=== PATIENT | female | born 1985 | race Caucasian/White ===

== ENCOUNTER 2020-05-25 12:16 | Emergency (ER) | payer OTHER ==
[~2020-05-25] VITALS: Ht 167.6 cm; Wt 76.3 kg
[2020-05-25] MEDS ORDERED: IBUPROFEN600 MG PO (14:22)
[2020-05-25 14:30] VITALS: BP 112/74
== END 2020-05-25 14:30 | disposition home or self-care (01) ==
LOC: ED 12:16
DX: S93.492A Sprain of other ligament of left ankle, initial encounter (principal); M25.561 Pain in right knee; W01.0XXA Fall on same level from slipping, tripping and stumbling without subsequent striking against object, initial encounter; Y93.89 Activity, other specified; Y92.009 Unspecified place in unspecified non-institutional (private) residence as the place of occurrence of the external cause

== ENCOUNTER 2021-08-17 15:04 | Emergency (ER) | payer OTHER ==
[~2021-08-17] VITALS: Ht 167.6 cm; Wt 79.0 kg
[~2021-08-17 15:04] MED LIST: IBUPROFEN600 MG PO
[2021-08-17 16:25] LABS: URINE BILIRUBIN - DIPSTICK NEGATIVE (NEGATIVE); URINE BLOOD DIPSTICK NEGATIVE (NEGATIVE); URINE CLARITY CLEAR; URINE COLOR YELLOW; URINE GLUCOSE - DIPSTICK NEGATIVE (NEGATIVE); URINE KETONE NEGATIVE (NEGATIVE); URINE LEUK ESTERASE NEGATIVE (Negative); URINE NITRITE - DIPSTICK NEGATIVE (Negative); URINE PROTEIN - DIPSTICK NEGATIVE (NEG-TRACE)
[2021-08-17 17:55] VITALS: BP 123/62
== END 2021-08-17 17:45 | disposition home or self-care (01) | DRG 563 ==
LOC: ED 15:04
DX: S39.012A Strain of muscle, fascia and tendon of lower back, initial encounter (principal); S50.12XA Contusion of left forearm, initial encounter; M79.675 Pain in left toe(s); V43.52XA Car driver injured in collision with other type car in traffic accident, initial encounter

== ENCOUNTER 2021-11-26 16:18 | Emergency (ER) | payer OTHER ==
[~2021-11-26] VITALS: Ht 167.6 cm; Wt 79.6 kg
[2021-11-26] MEDS ORDERED: LYRICA50 MG PO (16:46)
[2021-11-26] MEDS ORDERED: AMOXICILLIN500 MG PO (19:12)
[2021-11-26] MEDS ORDERED: PERCOCET 10/31 COMBO PO (19:42)
[2021-11-26 19:45] VITALS: BP 120/85
== END 2021-11-26 19:58 | disposition home or self-care (01) ==
LOC: ED 16:18
DX: S91.012A Laceration without foreign body, left ankle, initial encounter (principal); W25.XXXA Contact with sharp glass, initial encounter; Y93.E9 Activity, other interior property and clothing maintenance; Y92.009 Unspecified place in unspecified non-institutional (private) residence as the place of occurrence of the external cause

== ENCOUNTER 2021-11-27 18:29 | Emergency (ER) | payer OTHER ==
[~2021-11-27] VITALS: Ht 167.6 cm; Wt 68.0 kg
[~2021-11-27 18:29] MED LIST changes: +AMOXICILLIN500 MG PO; +LYRICA50 MG PO; +PERCOCET 10/31 COMBO PO
[2021-11-27 19:20] VITALS: BP 106/61
== END 2021-11-27 19:20 | disposition home or self-care (01) ==
LOC: ED 18:29
DX: S91.312D Laceration without foreign body, left foot, subsequent encounter (principal); X58.XXXD Exposure to other specified factors, subsequent encounter

== ENCOUNTER 2021-12-02 10:21 | Emergency (ER) | payer OTHER ==
[~2021-12-02] VITALS: Ht 167.6 cm; Wt 79.5 kg
[2021-12-02] MEDS ORDERED: MORPHINE SUL15 MG PO (11:13)
[2021-12-02 12:01] LABS: HEMATOCRIT 32.5 % (37.0-47.0); HEMOGLOBIN 10.1 g/dl (12.0-16.0); MEAN CELL VOLUME 75.1 fL CALC (80.0-100.0); MEAN CORPUSCULAR HGB 23.3 pG CALC (26.0-32.0); MEAN CORPUSCULAR HGB CONC 31.1 g/dL CAL (32.0-36.0); NEUT# 2.04 thou/uL (2.00-7.15); RED BLOOD COUNT 4.33 mill/uL (4.20-5.60); RED CELL DISTRI WIDTH 13.9 % (11.5-15.5)
[2021-12-02 12:20] LABS: ALBUMIN 3.6 g/dL (3.2-5.0); ALKALINE PHOSPHATASE 91 u/l (38-126); ANION GAP 12 (6-22 (CALC)); BILIRUBIN, TOTAL 0.4 mg/dL (0.0-1.4); BUN 12 mg/dL (7-17); BUN/CREATININE RATIO 15 (12-20 (CALC)); CARBON DIOXIDE 26 mmol/l (22-30); CHLORIDE 106 mmol/l (95-108); CREATININE 0.8 mg/dL (0.5-1.0); GFR > 60 ML/MIN (>=60 (CALC)); GFR FOR AFR.AMER. > 60 ML/MIN (>=60 (CALC)); POTASSIUM 3.8 mmol/l (3.5-5.1); SGOT/AST 32 u/l (14-36); SODIUM 140 mmol/l (137-146); TOTAL PROTEIN 7.1 g/dL (6.3-8.2)
[2021-12-02] MEDS ORDERED: KEFLEX500 MG PO (14:41)
[2021-12-02 14:53] VITALS: BP 108/67
== END 2021-12-02 14:55 | disposition left against medical advice (07) ==
LOC: ED 10:21
PROVIDERS: Emergency Medicine
DX: S86.022A Laceration of left Achilles tendon, initial encounter (principal); Z91.19 Patient's noncompliance with other medical treatment and regimen; X58.XXXA Exposure to other specified factors, initial encounter

== ENCOUNTER 2021-12-13 19:44 | Emergency (ER) | payer OTHER ==
[~2021-12-13] VITALS: Ht 167.6 cm; Wt 79.0 kg
[~2021-12-13 19:44] MED LIST changes: +KEFLEX500 MG PO; +MORPHINE SUL15 MG PO; +ROCEPHIN 1 GM1 GM IM
[2021-12-13] MEDS ORDERED: ONDANSETRON4 MG PO (20:31)
[2021-12-13 20:35] VITALS: BP 124/69
== END 2021-12-13 20:53 | disposition home or self-care (01) ==
LOC: ED 19:44
DX: S86.022D Laceration of left Achilles tendon, subsequent encounter (principal); X58.XXXD Exposure to other specified factors, subsequent encounter

== ENCOUNTER 2021-12-16 11:54 | Day surgery (SDC) | payer OTHER ==
[~2021-12-16] VITALS: Ht 167.6 cm; Wt 79.4 kg
[~2021-12-16 11:54] MED LIST changes: +ONDANSETRON4 MG PO
[2021-12-16 16:08] VITALS: BP 115/73
== END 2021-12-16 16:20 | disposition home or self-care (01) ==
LOC: ORM 11:54
PROVIDERS: ATTEND Podiatrist Foot & Ankle Surgery
DX: S86.022A Laceration of left Achilles tendon, initial encounter (principal); W25.XXXA Contact with sharp glass, initial encounter; T81.33XA Disruption of traumatic injury wound repair, initial encounter; Y83.8 Other surgical procedures as the cause of abnormal reaction of the patient, or of later complication, without mention of misadventure at the time of the procedure
CPT/HCPCS: J0131